=== PATIENT | female | born 1995 | race Caucasian/White ===

== ENCOUNTER 2016-12-31 02:14 | Emergency (ER) | payer BC ==
[2016-12-31 02:04] LABS: BASOPHILS 0.5 %; BASOPHILS ABSOLUTE 0.03 10/3/uL (0.0-0.16); EOSINOPHILS 1.7 %; ER CBC TAT 0 Hrs 04 MinsNP; HEMATOCRIT 39.4 % (36.0-48.0); HEMOGLOBIN 13.2 g/dL (12.0-16.0); IMMATURE GRANULOCYTES 0.2 %; IMMATURE GRANULOCYTES ABSOLUTE 0.01 10/3/uL (0.0-0.11); LYMPHOCYTES 11.7 %; MANUAL DIFF NO %; MEAN CORPUS HGB CONC 33.5 g/dL (32.0-36.0); MEAN CORPUSCULAR HEMOGLOB 28.6 pg (26.0-34.0); MEAN CORPUSCULAR VOLUME 85.3 fL (80-100); MEAN PLATELET VOLUME 10.4 fL (9.2-13.0); MONOCYTES 14.6 %; MONOCYTES ABSOLUTE 0.87 10/3/uL (0.21-1.20); NEUTROPHILS 71.3 %; NEUTROPHILS ABSOLUTE 4.25 10/3/uL (2.02-8.40); PLATELET COUNT 195 10/3/uL (150-400); RBC DISTRIBUTION WIDTH 13.6 % (12.0-16.0); RED CELL COUNT 4.62 10/6/uL (4.0-5.6)
[~2016-12-31 02:14] MED LIST: GLUCPH PO; LORTAB 5 PO; [UNRECOGNIZED DRUG - CODE] VA
[2016-12-31 02:17] LABS: CALCIUM, SERUM 8.3 MG/DL (8.5-10.4); CHLORIDE, SERUM 108 MMOL/L (96-112); CO2 (CARBON DIOXIDE) 26 MMOL/L (24-34); CREATININE 0.77 MG/DL (0.55-1.02); GFR AFRICAN AMERICAN 126 ML/MIN (>=60); GFR NON AFRICAN AMERICAN 109 ML/MIN (>=60); GLUCOSE, SERUM 94 MG/DL (60-99); SODIUM, SERUM 144 MMOL/L (135-148)
[2016-12-31 02:25] LABS: BUN (BLOOD UREA NITROGEN) 14 MG/DL (6-23)
[2016-12-31 02:57] LABS: INFLUENZA A SCREEN NEGATIVE (NEGATIVE); INFLUENZA B SCREEN POSITIVE (NEGATIVE)
== END 2016-12-31 04:01 | disposition home or self-care (01) ==
LOC: ER 02:14
PROVIDERS: Nurse Practitioner Acute Care
DX: J10.1 Influenza due to other identified influenza virus with other respiratory manifestations (principal); Z88.1 Allergy status to other antibiotic agents; Z79.899 Other long term (current) drug therapy
CPT/HCPCS: 71020; 80048; 85025; 87070; 87804; 87880; 99283; A9270-GY